=== PATIENT | male | born 1950 ===

== ENCOUNTER 2016-12-08 19:06 | Emergency (ER) | payer MEDICARE ==
[2016-12-08 19:17] VITALS: BP 162/82; PULSE 74; RESP 18; TEMP 98.7; O2SAT 97
--- NOTE | 2016-12-08 19:44 | ED PDOC ---
HPI: Dental Pain/Injury Time Seen by Provider: 12/08/16 19:08 Chief Complaint (Nursing): Dental Pain Chief Complaint (Provider): Dental Pain History Per: Patient History/Exam Limitations: no limitations Onset/Duration Of Symptoms: Days (1 day ago), Persistent Current Symptoms Are (Timing): Still Present Additional Complaint(s): 66 y/o male, accompanied by family, present to the ED with dental pain on the right side of his mouth. Patient states the pain began 2 days ago and describes the pain as a persistent, throbbing pain. He has not seen a dentist. Past Medical History Reviewed: Historical Data Vital Signs: Last Vital Signs Temp 98.7 F 12/08/16 19:14 Pulse 74 12/08/16 19:14 Resp 18 12/08/16 19:14 BP 162/82 H 12/08/16 19:14 Pulse Ox 97 12/08/16 19:14 - Surgical History Surgical History: No Surg Hx - Family History Family History: States: Unknown Family Hx - Living Arrangements Living Arrangements: With Family - Social History Current smoker - smoking cessation education provided: No Alcohol: None Drugs: Denies - Home Medications Home Medications: Ambulatory Orders Medication Instructions Recorded Amoxicillin 875 mg PO BID #20 tab 12/08/16 Naproxen 375 mg PO BID #20 tablet 12/08/16 - Allergies Allergies/Adverse Reactions: Allergies Allergy/AdvReac Type Severity Reaction Status Date / Time No Known Allergies Allergy Verified 12/08/16 19:14 Review of Systems ROS Statement: Except As Marked, All Systems Reviewed And Found Negative Constitutional: Negative for: Fever ENT: Positive for: Mouth Pain (Toothache on right side of mouth) Physical Exam - Reviewed Nursing Documentation Reviewed: Yes Vital Signs Reviewed: Yes - Physical Exam Appears: Positive for: Well, Non-toxic Skin: Positive for: Normal Color Eye Exam: Positive for: Normal appearance ENT: Positive for: Other (erythemia and diffuse dental decay) Neck: Positive for: Normal Cardiovascular/Chest: Positive for: Regular Rate, Rhythm Respiratory: Positive for: Normal Breath Sounds. Negative for: Respiratory Distress Neurologic/Psych: Positive for: Alert, Oriented. Negative for: Motor/Sensory Deficits - ECG O2 Sat by Pulse Oximetry: 97 (RA) Medical Decision Making Medical Decision Making: Time: 1957 Impression: Tooth Pain Plan: --Naproxen 500mg PO -- -- Scribe Attestation: Documented by Frederic Fritz, acting as a scribe for Bárbara Carpenter PA. Provider Scribe Attestation: All medical record entries made by the Scribe were at my direction and personally dictated by me. I have reviewed the chart and agree that the record accurately reflects my personal performance of the history, physical exam, medical decision making, and the department course for this patient. I have also personally directed, reviewed, and agree with the discharge instructions and disposition. Disposition - Clinical Impression Clinical Impression: Dental decay - Patient ED Disposition Is Patient to be Admitted: No Doctor Will See Patient In The: Office Counseled Patient/Family Regarding: Diagnosis, Need For Followup, Rx Given - Disposition Disposition: Routine/Home Disposition Time: 19:05 Condition: STABLE Prescriptions: Amoxicillin 875 mg PO BID #20 tab Naproxen 375 mg PO BID #20 tablet Instructions: Dental Caries (ED) Forms: [employer] [facility] (Slovak)
[2016-12-08] MEDS ORDERED: Naproxen 500 MG TAB PO STA (19:57)
[2016-12-08] MEDS ORDERED: Naproxen 500 MG TAB PO ONE (20:01)
== END 2016-12-08 20:03 | disposition home or self-care (01) ==
LOC: H.ER 19:06
DX: K02.9 Dental caries, unspecified (principal)

== ENCOUNTER 2017-04-14 06:40 | Emergency (ER) | payer MEDICARE ==
[2017-04-14] MEDS ORDERED: Sodium Chloride 0.9% 1,000 ML IV STA (07:35)
--- NOTE | 2017-04-14 07:38 | ED PDOC ---
HPI: General Adult Time Seen by Provider: 04/14/17 07:14 Chief Complaint (Nursing): Dizziness/Lightheaded Chief Complaint (Provider): Subjective Fever History Per: Patient, Family History/Exam Limitations: no limitations Onset/Duration Of Symptoms: Days (1 day ago) Current Symptoms Are (Timing): Still Present Additional Complaint(s): 67 yo male, accompanied by a family member, presents to the ED complaining of a subjective fever, onset of 1 day ago. Patient denies any complaints aside from the fever, and reports that he took an Advil last night. (-) chest pain; (-) vomiting; (-) sore throat; (-) dizziness; (-) cough ; (-) diarrhea; (-) urinary symptoms. No weakness, abd pain, neck pain, headaches. No symptoms currently. Past Medical History Reviewed: Historical Data, Nursing Documentation, Vital Signs Vital Signs: Last Vital Signs Temp 98.9 F 04/14/17 06:42 Pulse 86 04/14/17 06:42 Resp 18 04/14/17 06:42 BP 105/70 04/14/17 06:42 Pulse Ox 96 04/14/17 07:42 - Medical History PMH: No Chronic Diseases - Surgical History Surgical History: No Surg Hx - Family History Family History: States: Unknown Family Hx - Living Arrangements Living Arrangements: With Family - Social History Current smoker - smoking cessation education provided: No Ex-Smoker (has not smoked in the last 12 months): No Alcohol: None Drugs: Denies - Home Medications Home Medications: Ambulatory Orders Medication Instructions Recorded Amoxicillin 875 mg PO BID #20 tab 12/08/16 Naproxen 375 mg PO BID #20 tablet 12/08/16 - Allergies Allergies/Adverse Reactions: Allergies Allergy/AdvReac Type Severity Reaction Status Date / Time No Known Allergies Allergy Verified 12/08/16 19:14 Review of Systems ROS Statement: Except As Marked, All Systems Reviewed And Found Negative Constitutional: Positive for: Fever (subjective) ENT: Negative for: Nose Congestion, Throat Pain Cardiovascular: Negative for: Chest Pain Respiratory: Negative for: Cough, Shortness of Breath Gastrointestinal: Negative for: Nausea, Vomiting, Abdominal Pain, Diarrhea Genitourinary Male: Negative for: Dysuria, Frequency, Incontinence Neurological: Negative for: Headache, Dizziness Physical Exam - Reviewed Nursing Documentation Reviewed: Yes Vital Signs Reviewed: Yes - Physical Exam Appears: Positive for: Well, Non-toxic, No Acute Distress Head Exam: Positive for: ATRAUMATIC, NORMAL INSPECTION, NORMOCEPHALIC Skin: Positive for: Normal Color, Warm, DRY Eye Exam: Positive for: EOMI, Normal appearance, PERRL ENT: Positive for: Normal ENT Inspection Neck: Positive for: Normal, Painless ROM Cardiovascular/Chest: Positive for: Regular Rate, Rhythm. Negative for: Murmur Respiratory: Positive for: Normal Breath Sounds. Negative for: Respiratory Distress Gastrointestinal/Abdominal: Positive for: Normal Exam, Soft. Negative for: Tenderness Back: Positive for: Normal Inspection. Negative for: L CVA Tenderness, R CVA Tenderness Extremity: Positive for: Normal ROM. Negative for: Tenderness, Pedal Edema, Deformity Neurologic/Psych: Positive for: Alert, Oriented. Negative for: Motor/Sensory Deficits - Laboratory Results Result Diagrams: 04/14/17 08:00 04/14/17 09:55 Interpretation Of Abn Labs: no acute - ECG O2 Sat by Pulse Oximetry: 96 (RA) Pulse Ox Interpretation: Normal - Radiology X-Ray: Read By Radiologist X-Ray Interpretation: No Acute Disease - Progress ED Course And Treament: 1053: Stable. AAOx3. Pain free. No fever during stay. No dizziness. No back pain. Tolerated po without issues. Ambulated. Fu with pcp. Medical Decision Making Medical Decision Making: Time: --07:35 Impression: --Subjective Fever Plan: --Labs --ED Urine Dip --Chest X-ray 2 views --IV fluids --Influenza A B Reassess -- Scribe Attestation: Documented by Frederic Fritz acting as a scribe for Reynold Segundo MD. Disposition - Clinical Impression Clinical Impression: Viral infection, Dehydration - Patient ED Disposition Is Patient to be Admitted: No Counseled Patient/Family Regarding: Studies Performed, Diagnosis, Need For Followup - Disposition Referrals: [facility] [Outside] - 04/15/17 Disposition: Routine/Home Disposition Time: 10:55 Condition: STABLE Additional Instructions: Return if not better in 3 days. Instructions: Dehydration, Adult (DC), Viral Syndrome (DC)
[2017-04-14 07:57] LABS: BASO % 0.1 % (0.0-2.0); EOS % 0.1 % (0.0-4.0); HEMOGLOBIN 14.3 g/dL (12.0-18.0); LYMPH # 1.1 K/uL (1.0-4.3); MEAN CELL VOLUME 91.7 fl (80.0-94.0); MEAN CORPUSCULAR HEMOGLOBIN 31.3 pg (27.0-31.0); MEAN CORPUSCULAR HGB CONC 34.1 g/dL (33.0-37.0); MEAN PLATELET VOLUME 7.4 fl (7.2-11.7); MONO # 0.9 K/uL (0.0-0.8); NEUT # 7.1 K/uL (1.8-7.0); NEUT % 77.8 % (50.0-75.0); NRBC % 0.2 % (0.0-0.0); RBC 4.58 Mil/uL (4.40-5.90); RED CELL DISTRIBUTION WIDTH 13.8 % (11.5-14.5); WHITE BLOOD COUNT 9.1 K/uL (4.8-10.8)
--- NOTE | 2017-04-14 10:15 | RAD ---
HISTORY: dyspnea COMPARISON: No prior. TECHNIQUE: Chest PA and lateral FINDINGS: LUNGS: Minor bibasilar atelectasis PLEURA: No significant pleural effusion identified. No pneumothorax apparent. CARDIOVASCULAR: Heart size is upper limits of normal. OSSEOUS STRUCTURES: No significant abnormalities. VISUALIZED UPPER ABDOMEN: Normal. OTHER FINDINGS: None. IMPRESSION: Minor bibasilar atelectasis
[2017-04-14 10:38] LABS: ALB/GLOB RATIO 0.9 (1.0-2.1); ALBUMIN 3.7 g/dL (3.5-5.0); ALT/SGPT 27 U/L (21-72); AST/SGOT 33 U/L (17-59); BLOOD UREA NITROGEN 29 mg/dl (9-20); CALCIUM 8.6 mg/dL (8.4-10.2); GFR AFRICAN-AMERICAN > 60; GFR NON-AFRICAN AMERICAN > 60
[2017-04-14 11:04] VITALS: BP 132/74; PULSE 78; RESP 19; TEMP 98.5; O2SAT 98
== END 2017-04-14 11:15 | disposition home or self-care (01) ==
LOC: H.ER 06:40
DX: B34.9 Viral infection, unspecified (principal); E86.0 Dehydration
CPT/HCPCS: 71046; 80053; 85025; 87804; 99285; J7040